=== PATIENT | male | born 1990 | race Two or more races ===

== ENCOUNTER 2017-10-13 20:05 | Emergency (ER) | payer OTHER ==
[~2017-10-13] VITALS: Ht 177.8 cm; Wt 94.3 kg
[~2017-10-13 20:05] MED LIST: IBUP-2413 PO
[2017-10-13 20:09] VITALS: BP 128/79
[2017-10-13] MEDS ORDERED: KETOROLAC TROMETHAMINE INJ 60 MG/2 ML VIAL IM ONE (21:07)
[2017-10-13] MEDS: KETOROLAC TROMETHAMINE INJ 60 MG/2 ML VIAL IM ONE (21:13)
--- NOTE | 2017-10-13 21:14 | NUR ---
TORADOL INJ 60MG GIVEN IM ON RT SHOULDER.
--- NOTE | 2017-10-13 21:25 | NUR ---
Patient discharged to home in stable condition. Written and verbal after care instructions given. Patient verbalizes understanding of instruction. Pt left on foot with steady gait. No s/s of acute distress or sob noted. vs stable.
== END 2017-10-13 21:29 | disposition home or self-care (01) ==
LOC: ER 20:06
DX: M25.551 Pain in right hip (principal); F12.90 Cannabis use, unspecified, uncomplicated; J45.909 Unspecified asthma, uncomplicated
CPT/HCPCS: A4606; J1885; Z7610

== ENCOUNTER 2020-10-01 20:02 | Emergency (ER) | payer OTHER ==
[~2020-10-01] VITALS: Ht 175.3 cm; Wt 95.7 kg
[2020-10-01 21:35] VITALS: BP 148/95
[2020-10-01] MEDS ORDERED: TRIA80OI TP (21:56)
[2020-10-01] MEDS ORDERED: PRED20TA PO (21:56)
== END 2020-10-01 22:11 | disposition home or self-care (01) ==
LOC: ER 20:05
DX: L30.9 Dermatitis, unspecified (principal); J45.909 Unspecified asthma, uncomplicated; Z79.899 Other long term (current) drug therapy

== ENCOUNTER 2021-12-02 16:02 | Emergency (ER) | payer OTHER ==
[~2021-12-02] VITALS: Ht 172.7 cm; Wt 98.0 kg
[~2021-12-02 16:02] MED LIST changes: +PRED20TA PO; +TRIA80OI TP
--- NOTE | 2021-12-02 16:21 | NUR ---
LUQ PAIN INTERMITTENT R/T LOWER BACK X 1 WEEK. PAIN IS 6/10 ON PAIN SCALE. VITALS ARE WITHIN NORMAL LIMITS. URINE COLLECTED AND SENT. AWAITING MD BENSON.
--- NOTE | 2021-12-02 16:21 | NUR ---
SELF PRESENTS TO ED C/O LUQ ABDOMINAL PAIN R/T HIS LOWER BACK X 1 WEEK NOW. 6/10 PAIN, INTERMITTENT. NO NAUSEA, VOMITING AND DIARRHEA ENDORSED. STABLE VITALS. AWAITING MD BENSON.
[2021-12-02 17:23] LABS: BASOPHILS % (AUTO) 0.1 % (0.0-2.0); EOSINOPHILS % (AUTO) 1.4 % (0.0-6.0); HEMATOCRIT 47 % (39-51); HEMOGLOBIN 16.1 g/dL (13.5-17.5); LYMPHOCYTES # (AUTO) 1.5 K/uL (0.8-4.8); LYMPHOCYTES % (AUTO) 12.2 % (20.0-44.0); MEAN CORPUSCULAR HGB CONC 35 g/dl (31.0-36.0); MEAN CORPUSCULAR VOLUME 91 fL (80-96); MONOCYTES # (AUTO) 0.9 K/uL (0.1-1.30); MONOCYTES % (AUTO) 7.7 % (2.0-12.0); NEUTROPHILS # (AUTO) 9.5 K/uL (1.8-8.9); NEUTROPHILS % (AUTO) 78.6 % (43.0-81.0); PLATELET COUNT (AUTO) 230 K/uL (150-450); RED BLOOD CELL COUNT(AUTO) 5.14 MIL/uL (4.5-6.0)
[2021-12-02 18:01] LABS: BILIRUBIN,URINE NEGATIVE (NEGATIVE); COLOR,URINE YELLOW (YELLOW); LEUKOCYTE ESTERASE ,URINE NEGATIVE (NEGATIVE); NITRITE, URINE NEGATIVE (NEGATIVE); PROTEIN,URINE NEGATIVE (NEGATIVE); UGLUCOSE NEGATIVE (NEGATIVE)
[2021-12-02 18:04] LABS: CALCIUM, SERUM 8.9 mg/dL (8.5-10.1); CREATININE 0.8 mg/dL (0.6-1.3); POTASSIUM 3.3 mmol/L (3.5-5.1)
[2021-12-02 18:05] LABS: BACTERIA,URINE None seen /HPF (None Seen); SQUAMOUS EPITHELIAL CELL,UR 0-2 /HPF (None Seen); WBC,URINE 0-2 /HPF (0-3)
[2021-12-02 18:06] LABS: CALCIUM OXALATE CRYSTALS,UR Few /HPF (None Seen); MUCUS,URINE Moderate /LPF (None Seen)
[2021-12-02 18:10] LABS: ALBUMIN 4.2 g/dL (3.4-5.0); BILIRUBIN,DIRECT 0.2 mg/dL (0.0-0.2); BILIRUBIN,TOTAL 0.7 mg/dL (0.2-1.0); TOTAL PROTEIN, SERUM 7.4 g/dL (6.4-8.2)
[2021-12-02] MEDS ORDERED: LIDOCAINE VISCOUS 2% UD 15 ML UDC MM ONE (18:30)
[2021-12-02] MEDS ORDERED: MAG HYDROX/AL HYDROX/SIMETH 30 ML UDC PO ONE (18:30)
[2021-12-02] MEDS ORDERED: LIDOCAINE VISCOUS 2% UD 15 ML UDC ONE (18:33)
[2021-12-02] MEDS ORDERED: MAG HYDROX/AL HYDROX/SIMETH 30 ML UDC ONE (18:33)
[2021-12-02] MEDS ORDERED: OMEP20TA5 PO (18:53)
[2021-12-02 18:57] VITALS: BP 128/66
--- NOTE | 2021-12-02 18:57 | NUR ---
Patient discharged to home in stable condition. Written and verbal after care instructions given. Patient verbalizes understanding of instruction.
== END 2021-12-02 18:57 | disposition home or self-care (01) ==
LOC: ER 16:05
DX: R10.12 Left upper quadrant pain (principal); J45.909 Unspecified asthma, uncomplicated; Z79.899 Other long term (current) drug therapy
CPT/HCPCS: 36415; 76700-TC; 80048-TC; 80076-TC; 81001; 83690-TC; 85025-TC; 85730-TC

== ENCOUNTER 2023-06-15 13:04 | Emergency (ER) | payer OTHER ==
[~2023-06-15] VITALS: Ht 175.3 cm; Wt 97.5 kg
[~2023-06-15 13:04] MED LIST changes: +OMEP20TA5 PO
[2023-06-15] MEDS ORDERED: ACETAMINOPHEN ES 500 MG TABLET ONE (14:44)
[2023-06-15] MEDS ORDERED: IBUPROFEN 600 MG TABLET ONE (14:45)
[2023-06-15] MEDS: IBUPROFEN 600 MG TABLET PO ONE (14:48)
[2023-06-15] MEDS: ACETAMINOPHEN ES 500 MG TABLET PO ONE (14:48)
[2023-06-15] MEDS ORDERED: FLUO60SO3 TP (16:01)
[2023-06-15] MEDS ORDERED: IBUP-1953 PO (16:01)
[2023-06-15 16:20] VITALS: BP 133/86; TEMP 101.6; O2SAT 100
== END 2023-06-15 16:21 | disposition home or self-care (01) ==
LOC: ER 13:06
DX: B34.9 Viral infection, unspecified (principal); J45.909 Unspecified asthma, uncomplicated; Z79.899 Other long term (current) drug therapy

== ENCOUNTER → 2023-09-23 | Emergency (ER) | payer OTHER ==
[~2023-09-23] VITALS: Ht 172.7 cm; Wt 95.3 kg
[~2023-09-23] MED LIST changes: +FLUO60SO3 TP; +IBUP-1953 PO
[2023-09-23 17:54] LABS: APPEARANCE,URINE Clear (CLEAR); BILIRUBIN,URINE Negative (NEGATIVE); BLOOD, URINE Trace-intact Ery/uL (NEGATIVE); COLOR,URINE YELLOW (YELLOW); KETONES,URINE Negative (NEGATIVE); LEUKOCYTE ESTERASE ,URINE Negative (NEGATIVE); NITRITE, URINE Negative (NEGATIVE); PH,URINE 6.5 (5.0-8.0); PROTEIN,URINE Negative (NEGATIVE); UGLUCOSE Negative (NEGATIVE); UROBILINOGEN,URINE 0.2 EU/dL (0.2)
[2023-09-23 18:25] VITALS: BP 126/81; TEMP 98.2; O2SAT 98
[2023-09-23 18:47] LABS: ADD URINE CULTURE NO; BACTERIA,URINE Few /HPF (None Seen); SQUAMOUS EPITHELIAL CELL,UR Few /HPF (None Seen); WBC,URINE 0-2 /HPF (0-3)
== END | disposition home or self-care (01) ==
LOC: ER 17:29
DX: N43.3 Hydrocele, unspecified (principal); N50.89 Other specified disorders of the male genital organs; J45.909 Unspecified asthma, uncomplicated
CPT/HCPCS: 76870-TC; 81001